=== PATIENT | male | born 1960 | race Caucasian/White ===

== ENCOUNTER 2020-10-11 16:34 | Emergency (ER) | payer MEDICARE, SELFPAY ==
[2020-10-11] MEDS: LIDOCAINE, EPINEPHRINE, TETRACAINE VISCOUS SOLN 3 ML TOPICAL (16:42)
[2020-10-11 16:46] VITALS: BP 134/82; PULSE 60; RESP 18; TEMP 37.1; O2SAT 97
--- NOTE | 2020-10-11 16:55 | ED.WOUNDLAC ---
HPI - Wound/Laceration General Chief Complaint: Wound/Laceration Stated Complaint: cut finger on R/hand Time Seen by Provider: 10/11/20 16:36 Source: patient and RN notes reviewed Limitations: no limitations History of Present Illness HPI narrative: The right-handed patient, who is a pot smoker/drinker on several meds including Metformin, presents with finger laceration. Patient states he cut his right, long finger prior to arrival while cooking. He complains of mild pain and bleeding is worse with motion, better at rest, from radial based, distal/tuft flap-laceration. Related Data Home Medications Medication Instructions Recorded Confirmed allopurinol 300 mg DAILY 10/11/20 10/11/20 lisinopril 10 mg DAILY 10/11/20 10/11/20 metformin 1,000 mg BID 10/11/20 10/11/20 rosuvastatin 20 mg DAILY 10/11/20 10/11/20 Allergies Allergy/AdvReac Type Severity Reaction Status Date / Time bacitracin AdvReac Intermediate RASH Verified 05/27/18 10:20 neomycin AdvReac Intermediate RASH Verified 05/27/18 10:20 polymyxin B AdvReac Intermediate RASH Verified 05/27/18 10:20 Review of Systems Review of Systems: Narrative: General/Constitutional: No weight loss,fever Eyes: N0: Redness,discharge Ears/Nose/Throat: No: Epistaxis,ear discharge Respiratory: Denies: Hemoptysis Gastrointestinal: No Vomiting, Bleeding-rectal Skin: No Lumps, eruption Neurologic: No Focal Weakness,Sz Hematologic: Denies: Petechiae/Purpura Psychiatric: No: Suicida ideationl All Other Systems: Reviewed and Negative [facility] Social History Social History Gender identity (if verbalized by the patient): Male Comments At time of signature, agree with nursing past medical, surgical, social and family history. There is no relevant family history pertinent to the presenting complaint Exam Narrative: Exam Narrative: General Appearance: Well appearing, Conjunctiva clear Ears: External ear normal, Auditory canal normal Nose: Normal nose, Nares clear Mouth/Throat: Normal appearing, Normal lips, Supple Respiratory: Airway patent, No respiratory distress Skin: Distal middle finger flap laceration, radial based MS-middle finger: Normal strength (mostly intact, limited flexion/extension by pain), Tenderness (distally, with mild decreased ROM), no swelling Neurological: A&O x3, Speech clear, CN II-XII intact Psychiatric: Normal mood, Normal affect Course Vital Signs Vital signs: Vital Signs Temperature 98.8 F 10/11/20 16:46 Pulse Rate 60 10/11/20 16:46 Respiratory Rate 18 10/11/20 16:46 Blood Pressure 134/82 10/11/20 16:46 Pulse Oximetry 97 10/11/20 16:46 Temperature 98.8 F 10/11/20 16:46 Pulse Rate 60 10/11/20 16:46 Respiratory Rate 18 10/11/20 16:46 Blood Pressure 134/82 10/11/20 16:46 Pulse Oximetry 97 10/11/20 16:46 Procedures Laceration Laceration 1: Date: 10/11/20 Site: hand (middle finger) Side (If applicable): right Size (cm): 1 Depth: simple, single layer Local Anesthetic: other anesthetic (LET) Amount of anesthesia used (mL): 1 ====== Skin Level ====== Skin layer closed with: nylon Size (cm): 6-0 ====== Subcutaneous Layer ====== ====== Muscle Layer ====== ====== Tendon Layer ====== Discharge Plan Discharge Clinical Impression: Finger laceration Qualifiers: Encounter type: initial encounter Finger: middle finger Damage to nail status: without damage Foreign body presence: without foreign body Laterality: right Qualified Code(s): S61.212A - Laceration without foreign body of right middle finger without damage to nail, initial encounter Patient Disposition: Home, Self-Care Condition: Improved Instructions: Antibiotic Form, Finger Laceration (ED) Additional Instructions: Remove stitch in about 5 days and then Steri-Strip/butterfly bandage Prescriptions: New cephalexin 500 mg capsule 500 mg PO
== END 2020-10-11 17:23 | disposition home or self-care (01) ==
PROVIDERS: Emergency Provider Emergency Medicine; PCP Family Medicine
DX: S61.212A Laceration without foreign body of right middle finger without damage to nail, initial encounter (principal); W45.8XXA Other foreign body or object entering through skin, initial encounter; Y93.G3 Activity, cooking and baking; E78.00 Pure hypercholesterolemia, unspecified; I10 Essential (primary) hypertension; E11.9 Type 2 diabetes mellitus without complications
CPT/HCPCS: 12001; 99213; G0463

== ENCOUNTER 2021-06-08 02:11 | Day surgery (SDC) | payer MEDICARE, SELFPAY ==
[2021-05-29 09:28] VITALS: BMI 28.2
--- NOTE | 2021-06-07 13:06 | WPDANESEPPF ---
Anes - Initial Pre Proc Eval Procedure: Operation Date: 06/08/21 08:30 Proposed Procedures p Screening Colonoscopy - Gildardo Anderson MD Date/Time: 06/07/21 13:06 Surgeon: Gildardo Anderson MD Pre Op Diagnosis: family hx of colon ca Z80.0 Patient Data Age: 60 Gender: M Height: 1.82 m Weight: 93 kg Allergies Allergy/AdvReac Type Severity Reaction Status Date / Time bacitracin AdvReac Intermediate RASH Verified 06/08/21 07:52 neomycin AdvReac Intermediate RASH Verified 06/08/21 07:52 polymyxin B AdvReac Intermediate RASH Verified 06/08/21 07:52 Home Medications Medication Instructions Recorded Confirmed Type allopurinol 300 mg PO DAILY 10/11/20 05/29/21 History lisinopril 10 mg PO DAILY 10/11/20 05/29/21 History metformin 1,000 mg PO BID 10/11/20 05/29/21 History rosuvastatin 20 mg PO DAILY 10/11/20 05/29/21 History tramadol 50 mg PO Q6H PRN #15 tablet 10/11/20 05/29/21 Rx gabapentin 800 mg PO BID 05/29/21 05/29/21 History mupirocin 1 applic TOPICAL TID PRN 05/29/21 05/29/21 History nabumetone 500 mg PO BID 05/29/21 05/29/21 History Patient hx anesthesia problems: none Family hx anesthesia problems: none PMFSH Past Medical History Medical History (Updated 06/08/21 @ 08:19 by Gildardo Anderson MD) Diabetes type 2, controlled GERD (gastroesophageal reflux disease) Hyperlipidemia Hypertension Social History Social History Smoking status: Never smoker Alcohol intake: current Drinks per week: 6 Substance use: current Substance use type: marijuana Other substance usage details: DAILY Living arrangements: with family Gender identity (if verbalized by the patient): Male Spiritual care concerns: No Anes - Eval Final PreProcedure Day of Procedure 06/07/21 13:06 Patient weight: overweight Heart: regular rate and rhythm Lungs: clear to auscultation and normal air movement Airway: Mallampati scale class II Neurological: alert and oriented Last oral intake: >/= 8 hours ASA classification: III Emergent: no Anesthetic plan: proceed Anesthesia type and monitoring: general GIVS and standard monitoring Informed Consent: The patient's anesthetic plan and its attendant risks and benefits were discussed with the patient/family/POA. Questions were solicited and answers provided to the satisfaction of the patient/family/POA.
[2021-06-08 07:53] VITALS: BP 118/71; PULSE 50; RESP 18; TEMP 36.6; O2SAT 99
[2021-06-08] MEDS: LACTATED RINGERS 1,000 ML 150 ML IV CONT (08:04)
--- NOTE | 2021-06-08 08:17 | WPDGICN ---
Assessment and Plan Assessment and plan (1) Family hx of colon cancer: Code(s): Z80.0 - Family history of malignant neoplasm of digestive organs Status: Acute Assessment and Plan: Patient's father had colon cancer. For this reason patient has had screening colonoscopies at 5 year intervals. Further recommendations will be given after colonoscopy. GI Consult Note Consult date/time: 06/08/21 08:17 HPI: Shiraz Paul is a 60 year old male Presents for screening colonoscopy. patient reports that his current weight appetite bowel movements are normal. He denies abdominal pain. He has had no bleeding. Family history is significant his father had colon cancer. Patient's last colonoscopy was about 5 years ago. He presents today for neoplasia screening. Review of Systems Review of Systems: All systems reviewed & are unremarkable except as noted in HPI and below PMFSH Past Medical History Medical History (Updated 06/08/21 @ 08:19 by Gildardo Anderson MD) Diabetes type 2, controlled GERD (gastroesophageal reflux disease) Hyperlipidemia Hypertension Social History Social History Smoking status: Never smoker Alcohol intake: current Drinks per week: 6 Substance use: current Substance use type: marijuana Other substance usage details: DAILY Living arrangements: with family Gender identity (if verbalized by the patient): Male Spiritual care concerns: No Meds Home Medications and Allergies Home Medications Medication Instructions Recorded Confirmed Type allopurinol 300 mg PO DAILY 10/11/20 05/29/21 History lisinopril 10 mg PO DAILY 10/11/20 05/29/21 History metformin 1,000 mg PO BID 10/11/20 05/29/21 History rosuvastatin 20 mg PO DAILY 10/11/20 05/29/21 History tramadol 50 mg PO Q6H PRN #15 tablet 10/11/20 05/29/21 Rx gabapentin 800 mg PO BID 05/29/21 05/29/21 History mupirocin 1 applic TOPICAL TID PRN 05/29/21 05/29/21 History nabumetone 500 mg PO BID 05/29/21 05/29/21 History Allergies Allergy/AdvReac Type Severity Reaction Status Date / Time bacitracin AdvReac Intermediate RASH Verified 06/08/21 07:52 neomycin AdvReac Intermediate RASH Verified 06/08/21 07:52 polymyxin B AdvReac Intermediate RASH Verified 06/08/21 07:52 Vital Signs Vital Signs - 24 hr 06/08/21 07:53 Temperature 97.8 F Pulse Rate 50 L Respiratory Rate 18 Blood Pressure 118/71 Pulse Oximetry 99 Exam Narrative: Physical exam reveals patient to be alert. Vital signs stable. HEENT exam is unremarkable. Patient is anicteric. Lungs are clear to auscultation and percussion. Heart is without murmur or extra sounds. Abdominal exam bowel sounds are present soft nontender with no organomegaly. Digital external rectal exam is normal.
[2021-06-08 08:33] LABS: Glucose Point of Care 150 mg/dl (65-105)
[2021-06-08 09:18] VITALS: BP 111/70; PULSE 62; RESP 20; O2SAT 94
[2021-06-08 09:28] VITALS: BP 122/68; PULSE 50; RESP 19; O2SAT 95
[2021-06-08 09:37] VITALS: BP 126/75; PULSE 51; RESP 19; O2SAT 99
== END 2021-06-08 09:56 | disposition home or self-care (01) ==
PROVIDERS: PCP Family Medicine; Visit Provider Internal Medicine Gastroenterology
PROC: 0DJD8ZZ Inspection of Lower Intestinal Tract, Via Natural or Artificial Opening Endoscopic (ICD-10-PCS; CPT 45378; principal; 2021-06-08 08:30)
DX: Z12.11 Encounter for screening for malignant neoplasm of colon (principal); D12.3 Benign neoplasm of transverse colon; K62.1 Rectal polyp; I10 Essential (primary) hypertension; E11.9 Type 2 diabetes mellitus without complications; E78.5 Hyperlipidemia, unspecified; K21.9 Gastro-esophageal reflux disease without esophagitis; Z80.0 Family history of malignant neoplasm of digestive organs
CPT/HCPCS: 45385; 82948; 88305; J2704; J7120